=== PATIENT | male | born 1960 | race Caucasian/White ===

== ENCOUNTER → 2017-08-07 | Outpatient (CLI) | payer MEDICARE, OTHER ==
[~2017-08-07] MED LIST: ACETAMINOPHEN PO; ACETAMINOPHEN325 MG PO; ALBUTEROL17 GM INH; ALBUTEROL2.5 MG/0.5 IH; ALDACTAZIDE 25/1 TA1 PO; ALDACTONE PO; ALDACTONE25 MG PO; AMIODARONE HCL100 MG PO; AMIODARONE HCL400 MG PO; ASPERDRINK81 MG PO; ASPIRIN; ASPIRIN EC81 M1 PO; ASPIRIN PO; ASPIRIN81 M1 PO; ASPIRIN81 M2 PO; ASPIRIN81 MG PO; ASPIRINEC PO; ATENOLOL PO; AUGMENTIN PO; AZELASTINE137 MCG/0.; CLEARLAX17 GM PO; CORDARONE200 M1 PO; COREG PO; COREG12.5 MG PO; COREG3.125 MG PO; COREG6.25 MG PO; COUMADIN; COUMADIN PO; COUMADIN1 MG PO; CYMBALTA PO; CYMBALTA30 MG PO; DIAZEPAM PO; DYMISTA NASAL S23 GM; FLOMAX0.4 M1; FLORICET PO; FLOVENT DI50 MCG/DIS INH; FUROSEMIDE40 MG PO; GABAPENTIN300 M2 PO; GABAPENTIN300 MG PO; GABAPENTIN600 MG PO; GLUCOPHAGE XR500 MG PO; HUMULIN 70100 UNIT/1 SUBQ; HUMULIN R SUBQ; HUMULIN R100 U/ML SUBQ; HUMULIN R500 U/ML IJ; HYDROCODON-ACE1 EAC5 PO; IMDUR PO; IMDUR-ER30 M3 PO; IMDUR-ER30 MG PO; IMDUR-ER60 M1 PO; IMDUR-ER60 M3 PO; IMDUR-ER60 MG PO; IMDUR30 MG PO; ISORDIL40 MG; JANTOVEN2 MG PO; LANTUS100 U/ML SUBQ; LANTUS100 UNITS/ INJ; LASIX PO; LASIX20 MG PO; LESCOL; LESCOL PO; LEVAMIR IJ; LEVAMIR INSULIN SUBQ; LEVAMIR SC; LEVAMIR SUBQ; LEVEMIR FL100 UNIT/1 SQ; LEVEMIR INJ; LEVEMIR SUBQ; LEVEMIR100 UNITS/ SUBQ; LISINOPRIL; LISINOPRIL PO; LISINOPRIL2.5 MG PO; LISINOPRIL5 MG PO; LOPRESSOR; LOPRESSOR PO; LOVENOX100 MG/ML INJ; LOVENOX120 MG/0.8 INJ; METFORMIN PO; METOLAZONE2.5 MG PO; MEVACOR PO; MONTELUKAST SOD10 MG PO; NEURONTIN PO; NEURONTIN300 MG PO; NEURONTIN600 MG PO; NITROGLYCERIN OI1 GM EXT; NITROGLYCERIN0.4 MG SL; NITROGLYGERIN0.4 MG SL; NITROGYLCERIN BC; NITROGYLCERIN SUBLINGUAL; NITROSTAT0.4 MG SL; NOVOLIN 70/30 V10 M1 SQ; NOVOLIN 70/30 V10 ML INJ; NOVOLIN R100 UNITS/ SUBQ; NOVOLOG100 U/ML; NOVOLOG100 UNITS/ INJ; OMEPRAZOLE40 M1 PO; OXYCODONE HCL5 MG PO; PACERONE PO; PACERONE100 MG PO; PERCOCET 10/3251 TAB PO; PERCOCET 5-3251 TAB PO; PERCOCET 7.5-31 EACH PO; PERCOCET PO; PERCOCET5/325 PO; PROAIR HFA8.5 GM; PROTONIX PO; PROTONIX20 MG PO; QVAR7.3 G1 INH; QVAR7.3 GM INH; RANEXA500 MG PO; SENNA S TABLET1 TAB PO; SIMVASTATIN20 MG PO; SIMVASTATIN40 MG PO; SPIRIVA18 MCG INH; SPIRIVA18 MCG PO; ST JOSEPH ASPIR81 MG PO; TORADOL10 MG PO; TYLENOL #3 PO; TYLENOL EXTRA500 M1 PO; TYLENOL325 M1 PO; TYLENOL500 MG PO; ULTRAM PO; VITAMIN D50000 UNIT PO; WALMART PHARMACY; WARFARIN SODIUM1 M1 PO; WARFARIN SODIUM1 MG PO; WARFARIN SODIUM2 M1 PO; WARFARIN SODIUM2 MG PO; XOPENEX HFA15 GM INH; XOPENEX HFA15 GM NEB; XOPENEX45 MCG/15 IH; ZOCOR PO; ZOCOR20 MG PO; [UNRECOGNIZED DRUG - OTHER] PO
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
== END | disposition home or self-care (01) ==
LOC: CRAD 09:11
DX: J44.9 Chronic obstructive pulmonary disease, unspecified (principal); R63.4 Abnormal weight loss; R11.2 Nausea with vomiting, unspecified; R91.8 Other nonspecific abnormal finding of lung field; Z98.890 Other specified postprocedural states
CPT/HCPCS: 71020; 74000